=== PATIENT | male | born 1985 | race African-American/Black ===

== ENCOUNTER 2017-08-25 18:49 | Emergency (ER) | payer SELFPAY ==
[2017-08-25 18:57] VITALS: BP 107/61
--- NOTE | 2017-08-25 19:06 | UC ---
Skin Complaint HPI - HPI Summary HPI Summary: 3 days of fever chills left axilla lympadenopathy no evidence of open area or infection on skin, no recent ill exposures - History of Current Complaint Chief Complaint: UCSkin Time Seen by Provider: 08/25/17 19:03 Stated Complaint: LUMP UNDER ARM FEVER Hx Obtained From: Patient Onset/Duration: Sudden Onset, Lasting Days - 3-4 Timing: Constant Onset Severity: Moderate Current Severity: Moderate Pain Intensity: 6 Pain Scale Used: 0-10 Numeric Location: Discrete - ;left axilla Character: Raised, Painful Aggravating Factor(s): Nothing Alleviating Factor(s): OTC Meds Associated Signs & Symptoms: Positive: Fever, Chills - Allergy/Home Medications Allergies/Adverse Reactions: Allergies Allergy/AdvReac Type Severity Reaction Status Date / Time No Known Allergies Allergy Verified 08/25/17 18:53 Review of Systems Constitutional: Fever, Chills, Fatigue Skin: Negative Eyes: Negative ENT: Negative Respiratory: Negative Cardiovascular: Negative Gastrointestinal: Negative Genitourinary: Negative Motor: Other - pain and swelling left axilla Neurovascular: Negative Musculoskeletal: Negative Neurological: Negative Psychological: Negative Is Patient Immunocompromised?: No All Other Systems Reviewed And Are Negative: Yes PMH/Surg Hx/FS Hx/Imm Hx Previously Healthy: Yes - Surgical History Surgical History: None - Social History Occupation: Employed Full-time Lives: With Family Alcohol Use: Occasionally Substance Use Type: Marijuana Smoking Status (MU): Former Smoker Physical Exam Triage Information Reviewed: Yes Appearance: Well-Appearing, No Pain Distress, Well-Nourished Vital Signs: Initial Vital Signs Temp 100.7 F 08/25/17 18:54 Pulse 45 08/25/17 18:54 Resp 16 08/25/17 18:54 BP 107/61 08/25/17 18:54 Pulse Ox 99 08/25/17 18:54 Vital Signs Reviewed: Yes Eye Exam: Normal Eyes: Positive: Conjunctiva Clear ENT Exam: Normal ENT: Positive: Normal ENT inspection, Hearing grossly normal, Pharynx normal, Dental tenderness, Uvula midline. Negative: Nasal congestion, Nasal drainage, Tonsillar swelling, Tonsillar exudate, Trismus, Hoarse voice, Sinus tenderness Dental Exam: Normal Neck exam: Normal Neck: Positive: Supple, Nontender, No Lymphadenopathy Respiratory Exam: Normal Respiratory: Positive: Chest non-tender, Lungs clear, Normal breath sounds, No respiratory distress, No accessory muscle use Cardiovascular Exam: Normal Cardiovascular: Positive: RRR, No Murmur, Pulses Normal, Brisk Capillary Refill Abdominal Exam: Normal Abdomen Description: Positive: Nontender, No Organomegaly, Soft. Negative: CVA Tenderness (R), CVA Tenderness (L) Bowel Sounds: Positive: Present Musculoskeletal Exam: Normal Musculoskeletal: Positive: Strength Intact, ROM Intact, Edema @ - left axilla swollen lymph verses deep abscess Neurological Exam: Normal Neurological: Positive: Alert, Muscle Tone Normal Psychological Exam: Normal Skin Exam: Normal Course/Dx - Course Course Of Treatment: Ibuprofen, augmentin increase fluids follow with pcp - Diagnoses Provider Diagnoses: Lymphadenitis Left axilla Discharge - Discharge Plan Condition: Stable Disposition: HOME Prescriptions: Amoxicillin/Clavulanate TAB* [Augmentin TAB 875*] 875 mg PO BID #18 tab Ibuprofen TAB* [Motrin TAB* 600 MG] 600 mg PO Q6H PRN #40 tab PRN Reason: pain/fever Patient Education Materials: Lymphangitis (ED) Forms: *Work Release Referrals: [facility] [Outside] - If Needed No Primary Care Phys,NOPCP [Primary Care Provider] -
[2017-08-25] MEDS ORDERED: Amoxicillin/Clavulanate TAB* 875 MG PO ONE ×2 (19:15→19:16)
[2017-08-25] MEDS ORDERED: Ibuprofen TAB* 600 MG PO ONE ×2 (19:16→19:17)
== END 2017-08-25 19:30 | disposition home or self-care (01) ==
LOC: UCEAST 18:49
DX: I88.9 Nonspecific lymphadenitis, unspecified (principal)
CPT/HCPCS: 99213; A9270-GY; G0463

== ENCOUNTER 2018-04-29 18:31 | Emergency (ER) | payer MEDICAID ==
[2018-04-29 18:53] VITALS: BP 125/83
--- NOTE | 2018-04-29 19:05 | UC ---
Respiratory Complaint HPI - HPI Summary HPI Summary: 33 yo male presents with right anterior rib pain. He tells me that about 4 days ago he was doing an ab work out at the gym and felt a pull in this rib area. Didn't hurt at the time, but the next day was very painful. Pain worsens when taking a deep breath or with twisting movement. Has not taken anything OTC for pain. He has been googling a lot and is worried he might have "fluid in his lung ". Denies fever, chills, cough, SOB, chest pain. - History of Current Complaint Chief Complaint: UCRespiratory Stated Complaint: PAIN ABOVE RIBS Time Seen by Provider: 04/29/18 19:05 Hx Obtained From: Patient Onset/Duration: Sudden Onset Severity Initially: Severe Severity Currently: Severe Pain Intensity: 8 Pain Scale Used: 0-10 Numeric - Allergies/Home Medications Allergies/Adverse Reactions: Allergies Allergy/AdvReac Type Severity Reaction Status Date / Time No Known Allergies Allergy Verified 04/29/18 18:53 Home Medications: Home Medications NK [No Home Medications Reported] 04/29/18 [History Confirmed 04/29/18] PMH/Surg Hx/FS Hx/Imm Hx - Additional Past Medical History Additional PMH: None Previously Healthy: Yes - Surgical History Surgical History: None - Family History Known Family History: Positive: None - Social History Occupation: Employed Full-time Lives: With Family Alcohol Use: Occasionally Substance Use Type: Marijuana Substance Use Comment - Amount & Last Used: 3X/week Smoking Status (MU): Never Smoked Tobacco Review of Systems Constitutional: Negative Skin: Negative Respiratory: Negative Cardiovascular: Negative Gastrointestinal: Negative Neurovascular: Negative Musculoskeletal: Other: - Right rib pain Neurological: Negative Psychological: Negative All Other Systems Reviewed And Are Negative: Yes Physical Exam - Summary Physical Exam Summary: GENERAL: NAD. WDWN. No pain distress. SKIN: No rashes, sores, lesions, or open wounds. HEENT: Head: AT/NC Eyes: EOM intact. Conjunctiva clear without inflammation or discharge. Ears: Hearing grossly normal. TMs intact, no bulging, erythema, or edema. Nose: Nasal mucosa pink and moist. NTTP maxillary and frontal sinus. Throat: Posterior oropharynx without exudates, erythema, or tonsillar enlargement. Uvula midline. NECK: Supple. Nontender. No lymphadenopathy. CHEST: CTAB. No r/r/w. No accessory muscle use. Breathing comfortably and in no distress. CV: RRR. Without m/r/g. Pulses intact. Brisk cap refill. MSK: TTP over anterior right 7th-10th ribs. FROM B/L UEs. Strength 5/5. NEURO: Alert. CN II-XII grossly intact. PSYCH: Age appropriate behavior. Triage Information Reviewed: Yes Vital Signs: Initial Vital Signs Temp 98.6 F 04/29/18 18:47 Pulse 59 04/29/18 18:47 Resp 16 04/29/18 18:47 BP 125/83 04/29/18 18:47 Pulse Ox 100 04/29/18 18:47 UC Diagnostic Evaluation - Laboratory O2 Sat by Pulse Oximetry: 100 Respiratory Course/Dx - Course Course Of Treatment: XR: IMPRESSION: NO EVIDENCE FOR FRACTURE. Suspect intercostal muscle strain. Advised to rest and apply heat to the area. Take ibuprofen prn. F/u prn - Differential Dx/Diagnosis Provider Diagnoses: Muscle strain right ribs Discharge - Sign-Out/Discharge Documenting (check all that apply): Discharge/Admit/Transfer - Discharge Plan Condition: Stable Disposition: HOME Patient Education Materials: Muscle Strain (DC) Referrals: No Primary Care Phys,NOPCP [Primary Care Provider] - Additional Instructions: If you develop a fever, shortness of breath, chest pain, new or worsening symptoms - please call your PCP or go to the ED. 1) Apply heat to the area 2) May take 600mg ibuprofen every 6-8 hours as needed for pain - Billing Disposition and Condition Condition: STABLE Disposition: Home
--- NOTE | 2018-04-29 19:47 | RAD ---
INDICATION: Right rib pain. COMPARISON: Comparison is made with a prior chest x-ray study from September 24, 2004. TECHNIQUE: 4 views of the right ribs and dual-energy PA views of the chest were obtained. FINDINGS: No fracture or significant focal osseous abnormality is seen. The heart is within normal limits in size. The lungs are clear. There is no evidence for pneumothorax or pleural effusion. IMPRESSION: NO EVIDENCE FOR FRACTURE.
== END 2018-04-29 19:54 | disposition home or self-care (01) ==
LOC: UCEAST 18:31
DX: S29.011A Strain of muscle and tendon of front wall of thorax, initial encounter (principal); X50.0XXA Overexertion from strenuous movement or load, initial encounter; Y93.B9 Activity, other involving muscle strengthening exercises; Y92.39 Other specified sports and athletic area as the place of occurrence of the external cause
CPT/HCPCS: 99211; G0463